=== PATIENT | male | born 1955 | race Caucasian/White ===

== ENCOUNTER → 2020-11-07 07:43 | Outpatient (CLI) | payer MEDICARE, SELFPAY ==
--- NOTE | ~2020-11-07 | MR_ITS ---
EXAMINATION: MR foot RT wo con DATE: 11/07/2020 09:06 INDICATION: Chronic worsening right forefoot pain with paresthesias. TECHNIQUE: Magnetic resonance imaging (MRI) of the right fore/mid foot was performed without intraven ous contrast. Sequences included sagittal T1-weighted FSE, sagittal fluid sensitive FSE STIR, coronal PD-weighted FS FSE, coronal T1-weighted FSE, axial PD-weighted FS FSE, and axial PD-weighted FSE. COMPARISON: None FINDINGS: Small to moderate amount of motion artifact on multiple sequences despite repetition of a few sequenc es which mildly limits evaluation. Bone alignment is normal. 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 There is secondary degenerative subarticular cystic change along the proxim al articular surface of the medial cuneiform. Additional mild likely degenerative subarticular edema at the head of the first metatarsal. Otherwise normal marrow signal with no fracture, stress reaction , osteonecrosis or pathologic marrow replacing process. No joint effusions. Lisfranc ligament complex and the collateral ligament complex at the metatarsophalangeal and interphalangeal joints appear nor mal. The flexor and extensor tendons of the foot appear normal. There is mild to moderate fatty atrop hy along with increased fluid signal throughout the intrinsic musculature of the foot suggesting acut e on chronic innervation changes such as in the setting of diabetic neuropathy. IMPRESSION: 1. No acute osseous abnormality. 2. Likely mild to moderate polyarticular osteoarthritis in the fore and midfoot, severity of which wo uld be better appreciated with plain radiographs due to the small to moderate amount of motion on the current study. 3. Mild to moderate fatty atrophy and increased fluid signal of the intrinsic musculature of the foot suggestive of diabetic neuropathy. Reviewed, dictated and finalized at location A. IMPRESSION: 1. No acute osseous abnormality. 2. Likely mild to moderate polyarticular osteoarthritis in the fore and midfoot , severity of which would be better appreciated with plain radiographs due to t he small to moderate amount of motion on the current study. 3. Mild to moderate fatty atrophy and increased fluid signal of the intrinsic m usculature of the foot suggestive of diabetic neuropathy.
== END ==
PROVIDERS: Visit Provider Podiatrist Foot & Ankle Surgery
DX: M79.671 Pain in right foot (principal); R20.0 Anesthesia of skin; D36.10 Benign neoplasm of peripheral nerves and autonomic nervous system, unspecified; M19.071 Primary osteoarthritis, right ankle and foot; M62.571 Muscle wasting and atrophy, not elsewhere classified, right ankle and foot
CPT/HCPCS: 73718

== ENCOUNTER → 2020-11-25 08:34 | Outpatient (CLI) | payer MEDICARE, SELFPAY ==
--- NOTE | ~2020-11-25 | CT_ITS ---
EXAMINATION: CT BRAIN W/O DATE: 11/25/2020 08:56 INDICATION: Dizziness and giddiness TECHNIQUE: Computed tomography (CT) of the head was performed without intravenous contrast. The dose- length product was 599.57 mGy-cm. The mA was adjusted according to patient size. Iterative reconstruc tion technique was employed. COMPARISON: No prior studies for comparison. FINDINGS: Normal brain parenchymal volume for age. Normal madrid-white differentiation. No acute intrac ranial hemorrhage, infarction, mass or mass effect. There are scattered mild periventricular and subc ortical white matter changes, most likely related to small vessel ischemic disease (microangiopathy). No ventriculomegaly or midline shift. Midline sagittal images demonstrate a normal corpus callosum, c raniovertebral junction and sella turcica. Basilar cisterns are patent. Paranasal sinuses and mastoids are pneumatized. No depressed skull fractures. IMPRESSION: 1. No acute intracranial abnormality. Reviewed, dictated and finalized at location A.
== END ==
PROVIDERS: PCP Pediatrics; Visit Provider Nurse Practitioner Family
DX: R42 Dizziness and giddiness (principal); H53.9 Unspecified visual disturbance; R51.9 Headache, unspecified
CPT/HCPCS: 70450

== ENCOUNTER 2021-01-08 09:33 | Outpatient (CLI) | payer MEDICARE, SELFPAY ==
--- NOTE | 2021-01-08 09:45 | ECG_ITS ---
Measurements Intervals [place] Rate: 84 P: 48 ID: [id number] QRS: 26 QRSD: 141 T: 16 QT: 373 QTc: 441 Interpretive Statements SINUS RHYTHM RIGHT BUNDLE BRANCH BLOCK BASELINE ARTIFACT- I, III, AVR, AVL, AVF, V2-V6 ABNORMAL ECG Electronically Signed On 01-08-2021 9:53:16 CDT by Anuj Green D.O.
[2021-01-08 10:07] LABS: Anion Gap 10 mmol/L (8-16); Blood Urea Nitrogen 14 mg/dL (9-20); Calcium 9.9 mg/dL (8.4-10.2); Carbon Dioxide 27 mmol/L (22-30); Chloride 103 mmol/L (98-107); Estimated Glomerular Filt Rate > 60; Glucose 161 mg/dL (65-110); Potassium 4.5 mmol/L (3.4-5.0); Sodium 140 mmol/L (137-145)
== END 2021-01-08 09:34 | disposition home or self-care (01) ==
PROVIDERS: Anesthesiology; PCP Pediatrics; Visit Provider Podiatrist Foot & Ankle Surgery
DX: E11.9 Type 2 diabetes mellitus without complications (principal); I10 Essential (primary) hypertension; Z01.818 Encounter for other preprocedural examination; I45.10 Unspecified right bundle-branch block
CPT/HCPCS: 36415; 80048; 93005

== ENCOUNTER 2021-01-09 02:46 | Day surgery (SDC) | payer MEDICARE, SELFPAY ==
[2021-01-07 13:46] VITALS: BMI 34.4
--- NOTE | 2021-01-07 13:46 | PC.NURSE ---
Report to the Outpatient Waiting Room, entrance under the green pavilion located off [facility], at time _0600 on date _01/09/21 . OR Time: . - You and your visitor will be asked a series of questions to screen for COVID 19 for your protection. - A mask is required within the hospital. - Only one visitor is allowed at this time. Patient visitors will be guided where to wait when not with patient. Preoperative COVID Testing Requirements: No COVID Test needed if: (proof is required; if not received patient will have Rapid Test prior to entry) - Patient has received COVID Vaccine at least 14 days prior to procedure date or - Patient has positive COVID test result within last 90 days of surgery date. COVID Test needed if above criteria is not met If not COVID vaccinated a COVID test must be conducted within 72 hours of surgery and patient is asked to isolate self from time of testing until procedure. You will go to the [employer] [facility] for your COVID testing. The [employer] [facility] site is located at the corner of [address] from [facility]. You will only be called if COVID results are positive and your surgeon may reschedule your elective surgery date. Patients may have clear liquids (water, carbonated beverages, clear teas, apple juice) until 3 hours prior to surgery with a maximum of 20 ounces. - No food from midnight until time of surgery - Infants may have breast milk until 4 hours before surgery, formula 6 hours prior to surgery. - Children will be allowed to drink immediately following surgery. If applicable, please bring a bottle or sippy cup to assist with drinking. Juice, water, soda, and popsicles are readily available. For infants on formula, please bring formula the day of surgery. Pacifiers are allowed. Take the following medications with a SIP of water the morning of surgery: METOPROLOL,AMLODIPINE,INHALERS,DULOXETINE,GABAPENTIN Medications to discontinue per physician _ASPIRIN-STATES HOLD 7 DAYS PRE OP PER DR CASTORENA. ALL VITAMINS AND SUPPLEMENTS OF NOW Date to take last dose Please no make-up, nail slovenian, hairspray, perfume, deodorant, or body powder the day of surgery. No jewelry (including any body piercings) or valuables the day of surgery, leave them at home. Please take a shower or bath the night before, or the morning of, surgery with an antibacterial soap. Wear comfortable, loose fitting clothing. Children are encouraged to wear pajamas. - Jewelry must be removed prior to entering the operating room. Rings and piercings that are not removed may be cut off. - The hospital will not accept responsibility for valuables. - Please leave all valuables, including medications, at home the day of surgery. If you are going home after surgery, a licensed public transit trolley driver must drive you home. - NO public transportation without another adult. - We recommend that an adult stay with you for 24 hours following discharge. - We also recommend that you do not drive, make important decision, drink alcoholic beverages, or take any drugs that were not prescribed by your health care provider for at least 24 hours after your discharge time. For Pediatric surgeries, we recommend two adults accompany the child home (only one inside the building at this time). Follow any additional instructions given to you from your surgeon. Telephone instructions given to _SPOUSE DEBBIE and asked if any additional questions and then verbalized understanding. Patient advised to call surgeon office or pre surgery nurse liaison [phone] if any additional questions.
--- NOTE | 2021-01-08 15:09 | WPDANESEPPF ---
Anes - Initial Pre Proc Eval Procedure: Operation Date: 01/09/21 07:30 Proposed Procedures p Excision of Second Intermetatarsal Space Neuroma Right Foot - Yeison Walker JR, MD Date/Time: 01/08/21 15:09 Surgeon: Yeison Walker JR, MD Pre Op Diagnosis: painful neuroma of the right foot Patient Data Age: 65 Gender: M Height: 1.78 m Weight: 108.9 kg Allergies Allergy/AdvReac Type Severity Reaction Status Date / Time No Known Allergies Allergy Verified 01/09/21 06:16 Home Medications Medication Instructions Recorded Confirmed Type amlodipine 5 mg tablet 5 mg PO DAILY 03/21/19 01/07/21 History antiarthritic combination no.2 900 900 mg PO DAILY 03/21/19 01/07/21 History mg tablet aspirin 81 mg tablet,delayed 81 mg PO DAILY 03/21/19 01/07/21 History release cholecalciferol (vitamin D3) 25 25 mcg PO DAILY 03/21/19 01/07/21 History mcg (1,000 unit) tablet duloxetine 60 mg capsule,delayed 60 mg PO DAILY 03/21/19 01/07/21 History release sprinkle glimepiride 2 mg tablet 2 mg PO QAM 03/21/19 01/07/21 History losartan 50 mg tablet 50 mg PO DAILY 03/21/19 01/07/21 History mecobalamin (vitamin B12) 1,000 1,000 mcg SUBLINGUAL DAILY 03/21/19 01/07/21 History mcg disintegrating tablet,sublingual metformin 1,000 mg tablet 1,000 mg PO BID 03/21/19 01/07/21 History metoprolol succinate 50 mg capsule 50 mg PO DAILY 03/21/19 01/07/21 History sprinkle, ext. release 24 hr nabumetone 500 mg tablet 500 mg PO BID 03/21/19 01/07/21 History omega-3 fatty acids 1,000 mg 1,000 mg PO BID 03/21/19 01/07/21 History capsule tamsulosin 0.4 mg capsule 0.4 mg PO DAILY 03/21/19 01/07/21 History levalbuterol tartrate 45 2 inhalation INHALATION Q6H PRN 11/16/19 01/07/21 Rx mcg/actuation aerosol inhaler #15 gm semaglutide 0.5 mg SUB-Q WEEKLY ml 11/16/19 01/07/21 History albuterol sulfate 2.5 mg INHALATION QID PRN 90 Days 05/15/20 01/07/21 Rx #1080 ml montelukast 10 mg tablet 10 mg PO DAILY 90 Days #90 tablet 05/15/20 01/07/21 Rx pantoprazole 40 mg tablet,delayed See Rx Instructions .ROUTE 05/16/20 01/07/21 Rx release .COMPLEX #180 tablet atorvastatin 40 mg PO BID 01/07/21 01/07/21 History kdzzcvmebrz-lmjyuntbc-govlkztq 1 inh INHALATION DAILY 01/07/21 01/07/21 History [Trelegy Ellipta] gabapentin 300 mg PO TID 01/07/21 01/07/21 History Patient hx anesthesia problems: none Family hx anesthesia problems: none Results Review: All pre-operative results and documents have been reviewed as part of the pre-operative evaluation. [facility] Past Medical History Medical History (Updated 01/08/21 @ 15:11 by Mitesh Delcid MD) Arthritis Chronic GERD COPD (chronic obstructive pulmonary disease) Depression Diabetes says around 7.2 a month ago. 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
[2021-01-09] VITALS (7 sets, daily range): BP systolic 114–167; BP diastolic 63–95; PULSE 78–86; RESP 11–18; TEMP 36.2–36.8; O2SAT 94–100; BMI 36.0
[2021-01-09] MEDS: LACTATED RINGERS 1,000 ML 30 ML IV CONT (06:40)
[2021-01-09 06:51] LABS: Glucose Point of Care 140 mg/dl (65-105)
--- NOTE | 2021-01-09 07:18 | WPDHPUPDATE1 ---
History and Physical Update Update Date/Time: 01/09/21 07:18 History and Physical has been reviewed, including an updated exam of the patient. There are NO changes in the patient's condition. Risks, benefits, and alternatives have been discussed and questions answered. Patient agrees to proceed with procedure.
[2021-01-09] MEDS: ceFAZolin 2 GM/D5W 50 ML 2 GM/50 ML BAG IVPB (07:25)
[2021-01-09] MEDS: LIDOCAINE HCL 2% LOCAL INJ 20 ML VIAL 10 ML INFILTRATE (07:48)
--- NOTE | 2021-01-09 08:20 | W.PM.PROC2 ---
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 A pneumatic ankle tourniquet was placed about the patient's right ankle. Following general anesthesia I performed a proximal right ankle ring block. Next,the foot was then scrubbed, prepped, and draped in the usual aseptic manner. An Esmarch bandage was then used to examine the patient's left foot and pneumatic ankle tourniquet was then inflated. Surgery began in the following manner. An incision was made along the dorsal aspect of the 2nd intermetatarsal space neuroma of the right foot. Dissection was continued deep to the 2nd intermetatarsal space. All bleeders were cauterized as necessary. The deep transverse intermetatarsal ligament was severed. Next, dissection was continued deep to the plantar nerve which was hypertrophied and amorphous. It was dissected proximal to the central metatarsal shaft area and transected, next the distal branches were dissected and transected to the affected second and third digits. The neural fibrous tissue was sent for gross and histopathology. The deep subcutaneous tissue was reapproximated with 4-0 Vicryl and the skin was reapproximated with 4-0 Monocryl. Upon completion of the procedure, the incision was dressed with Steri-Strips, Adaptic, 4 x 4's, Kerlix, and Coban. The pneumatic ankle tourniquet was then deflated and a prompt hyperemic response noted to all digits of the right foot. A surgical shoe was than applied. The patient did very well with the procedure and the anesthesia. The patient was transferred to the recovery room with vital signs stable and vascular status intact to all toes of the affected foot. Following a period of postoperative monitoring, the patient will be discharged home on the following written and oral postoperative instructions: 1. Keep the dressing clean, dry, and intact. Use a cast protector bag with showers. 2. The patient to be protected weight bearing witha surgical shoe. 3. The patient should ice and elevate the right foot when at rest. 4. The patient to contact Dr. Walker for all postop care and if any problems arise. 5. Prescriptions were written for Percocet 5/325 dispensed 40 to be taken 1 p.o. q.4 to 6 hours as needed for severe pain. Estimated Blood Loss 1 Drains No Packing No Pathology yes Complications No immediate complications Condition stable Disposition same day
[2021-01-09 08:36] LABS: Glucose Point of Care 158 mg/dl (65-105)
== END 2021-01-09 09:58 | disposition home or self-care (01) ==
PROVIDERS: PCP Pediatrics; Visit Provider Podiatrist Foot & Ankle Surgery
PROC: (CPT 28080; principal; 2021-01-09 07:30)
DX: G57.61 Lesion of plantar nerve, right lower limb (principal); Z79.82 Long term (current) use of aspirin; Z79.84 Long term (current) use of oral hypoglycemic drugs; Z79.51 Long term (current) use of inhaled steroids; M19.90 Unspecified osteoarthritis, unspecified site; K21.9 Gastro-esophageal reflux disease without esophagitis; E11.9 Type 2 diabetes mellitus without complications; F32.9 Major depressive disorder, single episode, unspecified; I10 Essential (primary) hypertension; E78.5 Hyperlipidemia, unspecified; Z87.891 Personal history of nicotine dependence; E66.9 Obesity, unspecified; Z68.36 Body mass index [BMI] 36.0-36.9, adult
CPT/HCPCS: 28080; 36415; 80048; 82948; 88304; 93005; J0690; J1100; J1885; J2250; J2405; J2704; J3010; J7120

== ENCOUNTER 2023-01-12 07:59 | Outpatient (CLI) | payer MEDICARE, SELFPAY ==
--- NOTE | ~2023-01-12 | CT_ITS ---
CT Scan of the Chest without Contrast: Clinical Indication: COPD Technique: Contiguous sections were acquired throughout the chest without intravenous contrast. Dose reduction technique was used on this scan by utilizing automated exposure control and iterative recon struction technique. The dose-length product (DLP) was 534.81 mGy-cm. Findings: There is no evidence of any significant mediastinal, hilar or axillary lymphadenopathy. Calcified med iastinal/hilar lymph nodes are present. There are atherosclerotic calcifications of the aorta and cor onary arteries. There is no evidence of pleural or pericardial effusion. There is severe emphysema, particularly the upper lobes. No pulmonary nodules or infiltrates are note d. Images through the upper abdomen reveal no abnormalities. Impression: Severe emphysema, particularly in the upper lobes. Reviewed, dictated and finalized at location . RIALS ANALYST Impression: Severe emphysema, particularly in the upper lobes.
--- NOTE | 2023-01-12 11:23 | WPDSIXMINUTE ---
Six Minute Walk Procedure Procedure Performed Pulmonary Stress Test (6 min walk) Six Minute Walk Six Minute Walk: This is a 6 minute walk test. The test was performed and interpreted in accordance with the 2014 ERS/ATS task force guidelines. Findings: The patient's resting room air oxygen saturation measured by pulse oximetry was 96% and heart rate was 80 bpm. Patient ambulated for 305 meters and oxygen saturation remained 92 to 98%. Heart rate at the end of the study was 92 bpm. The patient did not qualify for supplemental oxygen at rest or with ambulation. There are no prior studies for comparison.
--- NOTE | 2023-01-12 11:25 | WPDPFTINT ---
PFT Procedure Performed PFT Procedure Performed Spirometry with Pre/Post Bronchodilator Plethysmography (Lung Vol) Diffusing Cap (DLCO) Flow Vol Loop PFT Interpretation This is a pulmonary function test with pre and post-bronchodilator spirometry, plethysmography and diffusing capacity. The test was performed and results interpreted in accordance with the 2019 and 2005 ATS/ERS Task Force guidelines respectively using the Global Lung Function Initiative-2012 reference equations. Patient demonstrated good effort and cooperation. Reproducibility criteria were met. The quality of the pre bronchodilator spirometry maneuver was Grade B and post bronchodilator spirometry maneuver was Grade B. Findings: Spirometry: There is decreased maximal expiratory airflow at all lung volumes. The contour the inspiratory flow tracing is normal. The pre bronchodilator FVC is 3.24 L, 78% predicted. The pre bronchodilator FEV1 is 1.75 L, 55% predicted. The pre bronchodilator FEV1: FVC ratio is 54%. The post bronchodilator FVC is 3.96 L, representing a 22% increase. The post bronchodilator FEV1 is 2.11 L, representing a 20% increase. The post bronchodilator FEV1: FVC ratio is 53%. Plethysmography: The total lung capacity is 7.14 L, 105% predicted. The functional residual capacity is 3.84 L, 107% predicted. The residual volume is 3.47 L, 148% predicted. Diffusing capacity: The diffusing capacity unadjusted for hemoglobin and carboxyhemoglobin is 16.5, 63% predicted. The diffusing capacity adjusted for alveolar volume is 2.69, 66% predicted. In comparison to previous pulmonary function testing on 04/29/2017 the post bronchodilator FVC is unchanged from 3.73 L to 3.96 L. The post bronchodilator FEV1 is unchanged from 2.24 L to 2.11 L. The total lung capacity is unchanged from 8.22 L to 7.14 L. The functional residual capacity is decreased from 5.39 L to 3.84 L. The residual volume is decreased from 4.22 L to 3.47 L. The diffusing capacity unadjusted for hemoglobin and carboxyhemoglobin is unchanged from 18.0 to 16.5. The diffusing capacity adjusted for alveolar volume is decreased from 3.49 to 2.69. Impression: There is a moderately severe obstructive abnormality with significant improvement after inhaling a single dose of albuterol. The increase in residual volume is consistent with air trapping from an obstructive abnormality. The diffusing capacity unadjusted for hemoglobin and carboxyhemoglobin is mildly decreased and remains mildly decreased when adjusted for alveolar volume. In comparison to previous pulmonary function testing on 04/29/2017 there has been a greater than anticipated time dependent decrease in the functional residual capacity, residual volume and diffusing capacity adjusted for alveolar volume with no significant change in the FVC, FEV1, total lung capacity or diffusing capacity unadjusted for hemoglobin and carboxyhemoglobin. Clinical correlation is recommended.
== END 2023-01-12 08:00 | disposition home or self-care (01) ==
PROVIDERS: PCP Pediatrics; Visit Provider Physician Assistant
DX: J44.9 Chronic obstructive pulmonary disease, unspecified (principal); R06.09 Other forms of dyspnea; J43.9 Emphysema, unspecified; R94.2 Abnormal results of pulmonary function studies
CPT/HCPCS: 71250; 94060; 94618; 94726; 94729

== ENCOUNTER 2023-03-06 14:54 | Emergency (ER) | payer MEDICARE, SELFPAY ==
--- NOTE | ~2023-03-06 | XR_ITS ---
EXAM: XR ankle RT min 3V DATE: 03/06/2023 16:09 HISTORY: FALL 3 WEEKS AGO . COMPARISON: None available. FINDINGS: Normal mineralization. Small nondisplaced lateral malleolus avulsion fractures, with both acute and chronic appearance. Likely chronic medial malleolar avulsion fragments, without overlying s oft tissue swelling. No lytic or blastic lesion. Moderate degenerative change at the tibiotalar joint . Moderate Achilles and plantar enthesopathy. No erosion or periosteal change. Swelling over the late ral malleolus. IMPRESSION: Likely acute, small, nondisplaced lateral malleolar avulsion fracture, correlate with rhett n/tenderness. Reviewed, dictated and finalized at location K. ONAL ACCOUNT MANAGER IMPRESSION: Likely acute, small, nondisplaced lateral malleolar avulsion fractu re, correlate with pain/tenderness.
[2023-03-06 15:17] VITALS: BP 153/91; PULSE 85; RESP 20; TEMP 36.5; O2SAT 97
--- NOTE | 2023-03-06 15:27 | ED.DENTAL ---
HPI - Dental/Oral General Chief complaint: Dental/Oral <Edwige Melgar NP - Last Filed: 03/06/23 17:18> Stated complaint: TOOTHACHE / R ANKLE INJURY <Edwige Melgar NP - Last Filed: 03/06/23 17:18> Time Seen by Provider: 03/06/23 15:27 <Edwige Melgar NP - Last Filed: 03/06/23 17:18> Source: patient <Edwige Melgar NP - Last Filed: 03/06/23 17:18> Mode of arrival: ambulatory <Edwige Melgar NP - Last Filed: 03/06/23 17:18> Limitations: no limitations <Edwige Melgar NP - Last Filed: 03/06/23 17:18> History of Present Illness HPI Narrative: 67-year-old male presents with complaint of right lower dental pain for 1 month. Patient reports that he had a crown placed to tooth that is hurting him a few months ago. Pain worse with eating. Febrile. No significant swelling noted. Patient also reports right ankle pain and swelling for 3 weeks. Reports he stepped into a hole, right ankle twisted and slid down into a hole. Pain worse when ambulatory. Called primary care physician for appointment and not able to see him until March 31. Patient would like x-ray to rule out fracture. All systems reviewed and negative except as noted above. <Edwige Melgar NP - Last Filed: 03/06/23 17:18> Related Data Home medications: Home Medications Medication Instructions Recorded Confirmed amlodipine 5 mg tablet 5 mg PO DAILY 03/21/19 03/06/23 antiarthritic combination no.2 900 900 mg PO DAILY 03/21/19 12/20/22 mg tablet (glucosamine-chondroitin) aspirin 81 mg tablet,delayed 81 mg PO DAILY 03/21/19 03/06/23 release (Adult Low Dose Aspirin) cholecalciferol (vitamin D3) 25 25 mcg PO DAILY 03/21/19 03/06/23 mcg (1,000 unit) tablet duloxetine 60 mg capsule,delayed 60 mg PO DAILY 03/21/19 03/06/23 release sprinkle glimepiride 2 mg tablet 2 mg PO QAM 03/21/19 03/06/23 losartan 50 mg tablet 50 mg PO DAILY 03/21/19 03/06/23 mecobalamin (vitamin B12) 1,000 1,000 mcg sublingual DAILY 03/21/19 03/06/23 mcg disintegrating tablet,sublingual metformin 1,000 mg tablet 1,000 mg PO BID 03/21/19 03/06/23 metoprolol succinate 50 mg capsule 50 mg PO DAILY 03/21/19 03/06/23 sprinkle, ext. release 24 hr nabumetone 500 mg tablet 500 mg PO BID 03/21/19 03/06/23 omega-3 fatty acids 1,000 mg 1,000 mg PO BID 03/21/19 03/06/23 capsule (Fish Oil Concentrate) tamsulosin 0.4 mg capsule 0.4 mg PO DAILY 03/21/19 03/06/23 atorvastatin 80 mg tablet 40 mg PO BID 01/07/21 03/06/23 gabapentin 300 mg capsule 300 mg PO TID 01/07/21 03/06/23 semaglutide 0.25 mg or 0.5 mg (2 1 mg subcut WEEKLY 06/11/22 12/20/22 mg/1.5 mL) subcutaneous pen injector (Ozempic) <Edwige Melgar NP - Last Filed: 03/06/23 17:18> Allergies/adverse reactions: Allergies Allergy/AdvReac Type Severity Reaction Status Date / Time No Known Allergies Allergy Verified 03/06/23 15:14 <Edwige Melgar NP - Last Filed: 03/06/23 17:18> Review of Systems Review of Systems: CONSTITUTIONAL: Denies fever, chills, or sweats. EYES: Denies visual changes, redness, or discharge. ENT: Denies rhinorrhea, congestion, sore throat, or otalgia. Reports right lower dental pain. CARDIOVASCULAR: Denies chest pain, palpitations, or edema. RESPIRATORY: Denies cough or dyspnea. GASTROINTESTINAL: Denies abdominal pain, nausea, vomiting, or diarrhea. GENITOURINARY: Denies dysuria or hematuria. SKIN: Denies rash or itching. MUSCULOSKELETAL: Denies back pain or myalgia. Reports right ankle pain and swelling. NEUROLOGIC: Denies headache, numbness, or weakness. PSYCHIATRIC: Denies anxiety or depression. All other systems reviewed are negative, except as documented in HPI. <Edwige Melgar, CHIEF INFORMATION SECURITY OFFICER - Last Filed: 03/06/23 17:18> [facility] Past Medical History Medical History: Medical History (Updated 03/06/23 @ 16:29 by Jonathan Plunkett APRN) Arthritis Chronic GERD COPD (chronic obstruc
== END 2023-03-06 16:50 | disposition home or self-care (01) ==
PROVIDERS: Emergency Provider Nurse Practitioner Family; PCP Pediatrics
DX: S82.64XA Nondisplaced fracture of lateral malleolus of right fibula, initial encounter for closed fracture (principal); K08.89 Other specified disorders of teeth and supporting structures; T14.90XA Injury, unspecified, initial encounter; E11.9 Type 2 diabetes mellitus without complications; E78.5 Hyperlipidemia, unspecified; I10 Essential (primary) hypertension; E66.9 Obesity, unspecified; Z68.38 Body mass index [BMI] 38.0-38.9, adult; Z87.891 Personal history of nicotine dependence
CPT/HCPCS: 29515; 73610; 99213; G0463

== ENCOUNTER → 2023-04-13 09:41 | Outpatient (CLI) | payer MEDICARE, SELFPAY ==
--- NOTE | ~2023-04-13 | MR_ITS ---
MRI of the right ankle Clinical history: Pain Technique: Coronal proton-density and proton-density fat-sat images, axial proton-density and proton- density fat-sat images, and sagittal proton-density and proton-density fat-sat images were acquired. Findings: Syndesmotic ligaments are intact. Anterior and posterior talofibular ligaments, and calcane ofibular ligament are intact. Medial flexor tendons, peroneal tendons, anterior extensor tendons, and Achilles tendon are intact. T here is mild tendinosis of the peroneal tendons with mild tenosynovitis at the level of the lateral m alleolus. There is an acute, transverse, minimally displaced fracture of the tip of the lateral malleolus. Ther e is probable focal subchondral lesion at the lateral corner of the talar dome with chondral malacia and focal subchondral marrow edema. Small tibiotalar joint effusion present. There is cystic/enthesop athic change in the talus at the deltoid ligament insertion. . Plantar fascia intact. There are small plantar calcaneal spur. Normal signal preserved in the sinus T arsi. Impression: Acute, transverse, minimally displaced fracture of the very tip of the lateral malleolus. Peroneal tendinosis and associated tenosynovitis. Focal osteochondral lesion at the lateral corner of the talar dome. Reviewed, dictated and finalized at location . [employer] Impression: Acute, transverse, minimally displaced fracture of the very tip of the lateral malleolus. Peroneal tendinosis and associated tenosynovitis. Focal osteochondral lesion at the lateral corner of the talar dome.
== END ==
PROVIDERS: PCP Podiatrist Foot & Ankle Surgery; Visit Provider Podiatrist Foot & Ankle Surgery
DX: S82.61XA Displaced fracture of lateral malleolus of right fibula, initial encounter for closed fracture (principal); M65.871 Other synovitis and tenosynovitis, right ankle and foot; M93.871 Other specified osteochondropathies, right ankle and foot; X58.XXXA Exposure to other specified factors, initial encounter
CPT/HCPCS: 73721

== ENCOUNTER 2024-09-10 08:05 | Outpatient (CLI) | payer MEDICARE, SELFPAY ==
--- NOTE | ~2024-09-10 | CT_ITS ---
CT Scan of the Chest without Contrast: Clinical Indication: COPD Technique: Contiguous sections were acquired throughout the chest without intravenous contrast. Dose reduction technique was used on this scan by utilizing automated exposure control and iterative recon struction technique. The dose-length product (DLP) was 639.90 mGy-cm. COMPARISON: 01/24/2023 Findings: There is no evidence of any significant mediastinal, hilar or axillary lymphadenopathy. Coronary jeremy ry calcifications are present. Small calcified right hilar and subcarinal/precarinal lymph nodes are present. There is no evidence of pleural or pericardial effusion. The lungs are clear. No pulmonary nodules or infiltrates are noted. Advanced emphysema present. Images through the upper abdomen reveal no abnormalities. Impression: Advanced emphysema, essentially stable from prior exam radiographically. Reviewed, dictated and finalized at [facility]. Impression: Advanced emphysema, essentially stable from prior exam radiographically.
--- OUTSIDE RECORDS SUMMARY | 2024-09-10 08:14 | XMS_ITS | Clinical Summary ---
Author Organization [facility] Address [address] [place] [address] Care Team Providers Care Marketing Outreach Coordinator Name Role Phone Jorge Moore MD Primary Care Provider [phone] Source Comments [facility],non-owned Affiliates and Associated Physician Practices is amultiple site organization consisting of ambulatory clinics and hospital sitesin [place], [place], [place] and [place]. This disclosure is being madepursuant to the Care Everywhere program and may not contain all information available regarding this patient. Last updated 17.[facility] Allergies No known active allergies Medications * Be aware that medications may not be up to date on this document. Alwaysverify current medications with the patient. OZEMPIC, 0.25 OR 0.5 MG/DOSE, 2 MG/1.5ML pen Inject 0.5 mg subcutaneously every 7 days 0 Active TRADJENTA 5 MG tablet Take 5 mg by mouth once daily 0 Active metFORMIN (GLUCOPHAGE) 1000 MG tablet Take 1,000 mg by mouth 2 times daily 0 Active metoprolol succinate XL 24hr (TOPROL XL) 50 MG tablet Take 50 mg by mouth 2 times daily 0 Active levalbuterol (XOPENEX) 45 MCG/ACT inhaler Inhale 2 puffs by mouth every 6 hours as needed 0 Active gabapentin (NEURONTIN) 300 MG capsule Take 300 mg by mouth 3 times daily 0 Active losartan (COZAAR) 50 MG tablet Take 50 mg by mouth 2 times daily 0 Active montelukast (SINGULAIR) 10 MG tablet Take 10 mg by mouth once daily 0 Active glimepiride (AMARYL) 2 MG tablet Take 2 mg by mouth 2 times daily 0 Active TRELEGY ELLIPTA 100-62.5-25 MCG/INH Inhale 1 puff by mouth once daily 0 Active DULoxetine (CYMBALTA) 60 MG capsule Take 60 mg by mouth once daily 0 Active atorvastatin (LIPITOR) 80 MG tablet Take 80 mg by mouth once daily 0 Active amLODIPine (NORVASC) 5 MG tablet Take 5 mg by mouth once daily 0 Active albuterol (PROVENTIL;DEIDRA TOLIN) (2.5 MG/3ML) 0.083% nebulizer solution Inhale 3 mL by mouth every 6 hours as needed 0 Active pantoprazole EC (PROTONIX) 40 MG tablet Take 40 mg by mouth once daily 0 Active nabumetone (RELAFEN) 500 MG tablet Take 500 mg by mouth 2 times daily 0 Active tamsulosin (FLOMAX) 0.4 MG capsule Take 0.4 mg by mouth once daily 0 Active aspirin EC (ECOTRIN) 81 MG tablet Take 81 mg by mouth once daily Active multivitamin daily tablet Take 1 tablet by mouth daily with food Active Cinnamon 500 MG Take 500 mg by mouth once daily Active vitamin D, cholecalcifero l, 50 MCG (2000 UT) tablet Take 2,000 Units by mouth once daily Active Carroll, Zingiber officinalis, (CARROLL ROOT) 500 MG Take 500 mg by mouth once daily Active APPLE CIDER VINEGAR PO Take 450 mg by mouth once daily Active Arjay-3 Fatty Acids (FISH OIL) 1200 MG Take 1,200 mg by mouth 2 times daily Active Turmeric 500 MG Take 500 mg by mouth once daily Active Active Problems Problem Noted Date Diagnosed Date Controlled type 2 diabetes liset agustin with complication, without long-term current use of insulin 11/29/2019 COPD (chronic obstructive pulmonary disease) Essential hypertension Overview (11/29/2019): Cath 01/2014 - mild plaquing in RCA only, LVEDP 14 mmHg Mixed hyperlipidemia Family History Medical History Relation Name Comments Diabetes - Type 2 Father Lupus Mother Relation Name Status Comments Father Mother Social History Tobacco Use Types Packs/Day Years Used Date Smoking Tobacco: Former Cigarettes 2 27 1 03/10/1972 - 01/09/2000 Alcohol Use Standard Drinks/Week Comments Yes 0 (1 standard drink = 0.6 oz pur e alcohol) Rare Sex and Gender Information Value Date Recorded Sex Assigned at Not on file Legal Sex Male 11:35 AM CDT Gender Identity Not on file Sexual Orientation Not on file Last Filed Vital Signs Vital Sign Reading Time Taken Comments Blood Pressure 183/110 11/29/2019 11:57 AM CDT Pulse 90 11/29/2019 11:57 AM CDT Temperature - - Respiratory Rate - - Oxygen Saturation 98% 11/29/2019 11:57 AM CDT Inhaled Oxygen Concentration - - Weight 117 kg (258 lb) 11/29/2019 11:57 AM CDT Height 179.1 cm (5' 10.5) 11/29/2019 11:57 AM C DT Body Mass Index 36.5 11/29/2019 11:57 AM CDT Plan of Treatment Health Maintenance Due Date Last Done Comments COLOGUARD (AGES 45-75) - COL ON CA SCREENING 1954 COLON MONITORING 1954 COLONOSCOPY - COLON CA SCREENING 1954 CT COLONOGRAPHY - COLON CA SCREENING 1954 Colorectal Cancer Screening 1954 FIT - COLON CA SCREENING 1954 FLEX SIG - COLON CA SCREENING 1954 HEPATITIS C SCREENING 08/29/1972 DIABETES-SERUM CREATININE 1972 DTAP/TDAP/TD VACCINES (1 - Tdap) 1973 PNEUMOCOCCAL VACCINE 50+ (1 of 2 - PCV) 1973 ZOSTER VACCINE (1 of 2) 2004 Respiratory Syncytial Virus (RSV) Vaccine Pt: or over 60 yrs (1 - Risk 60-74 years 1-dose series) 2014 AAA SCREENING 09/04/2019 DIABETES-FOOT EXAM WITH MONOFILAMENT 11/29/2019 DIABETES-HGB A1C 11/29/2019 COVID-19 VACCINE (1 - 2023-2 5 season) 2023 DEPRESSION SCREENING 03/07/2024 DIABETES - URINE PROTEIN SCREENING 03/07/2024 INFLUENZA VACCINE (#1) 2024 HEPATITIS B VACCINE Aged Out No longe r eligible based on patient's age to complete this topic HIB VACCINE Aged Out No longer eligi ble based on patient's age to complete this topic HPV VACCINE Aged Out No longer eligi ble based on patient's age to complete this topic MENINGOCOCCAL (Group B) VACC INE SHARED DECISION-MAKING Aged Out No longer eligibl e based on patient's age to complete this topic MENINGOCOCCAL GROUPS A/C/Y/W VACCINE Aged Out No longer eligible b ased on patient's age to complete this topic Insurance [facility] Care Teams Marketing Outreach Coordinator Relationship Specialty Start Date End Date Jorge Moore MD [address] [place] [address] PCP - General 01/13/21
--- NOTE | 2024-09-11 07:22 | WPDSIXMINUTE ---
Six Minute Walk Procedure Procedure Performed Pulmonary Stress Test (6 min walk) Six Minute Walk Six Minute Walk: This is a 6 minute walk test. The test was performed and interpreted in accordance with the 2014 ERS/ATS task force guidelines. Of note, patient complained of chest tightness at the end of the study. Findings: The patient's resting room air oxygen saturation measured by pulse oximetry was 98%, the heart rate was 75 bpm, and the modified Reinaldo dyspnea score was 0. Patient ambulated for 396 meters and oxygen saturation remained 95 to 96%. At the end of the study the heart rate was 111 bpm and the modified Reinaldo dyspnea score was 3. The patient did not qualify for supplemental oxygen at rest or with ambulation. There are no prior studies for comparison.
--- NOTE | 2024-09-11 07:24 | P.PCNPFT_ITS ---
PFT Procedure Performed PFT Procedure Performed Spirometry with Pre/Post Bronchodilator Plethysmography (Lung Vol) Diffusing Cap (DLCO) Flow Vol Loop PFT Interpretation This is a pulmonary function test with pre and post-bronchodilator spirometry, plethysmography and diffusing capacity. The test was performed and results interpreted in accordance with the 2019 and 2005 ATS/ERS Task Force guidelines respectively using the Global Lung Function Initiative-2012 reference equations. Patient demonstrated good effort and cooperation. Reproducibility criteria were met. The quality of the pre bronchodilator spirometry maneuver was Grade A and post bronchodilator spirometry maneuver was Grade A. Findings: Spirometry: There is decreased maximal expiratory airflow at all lung volumes with concave expiratory flow tracing. The contour the inspiratory flow tracing is normal. The pre bronchodilator FVC is 2.71 L, 66% predicted. The pre bronchodilator FEV1 is 1.21 L, 39% predicted. The pre bronchodilator FEV1: FVC ratio is 45%. The post bronchodilator FVC is 3.07 L, representing a 13% increase. The post bronchodilator FEV1 is 1.54 L, representing a 28% increase. The post bronchodilator FEV1: FVC ratio is 50%. Plethysmography: The total lung capacity is 7.19 L, 106% predicted. The functio nal residual capacity is 5.06 L, 141% predicted. The residual volume is 4.48 L, 188% predicted. The residual volume: Total lung capacity ratio is 62%. Diffusing capacity: The diffusing capacity unadjusted for hemoglobin and carboxyhemoglobin is 13.3, 52% predicted. The diffusing capacity adjusted for alveolar volume is 2.96, 74% predicted. In comparison to previous pulmonary function testing on 01/12/2023, the post bronchodilator FVC has decreased from 3.96 L to 3.07 L. The post bronchodilator FEV1 is decreased from 2.11 L to 1.54 L. The total lung capacity is unchanged from 7.14 L to 7.19 L. The functional residual capacity has increased from 3.84 L to 5.06 L. The residual volume has increased from 3.47 L to 4.48 L. The residual volume: Total lung capacity ratio is increased from 49% to 62%. The diffusing capacity unadjusted for hemoglobin and carboxyhemoglobin is decreased from 16.5 to 13.3. The diffusing capacity adjusted for alveolar volume is unchanged from 2.69 to 2.96 Impression: There is a severe obstructive abnormality. There is significant improvement after inhaling a single dose of albuterol. The increase in residual volume to total lung volume ratio is consistent with hyperinflation from an obstructive abnormality. The diffusing capacity unadjusted for hemoglobin and carboxyhemoglobin is moderately decreased and normalizes when adjusted for alve olar volume. In comparison to previous pulmonary function testing on 01/12/2023, there has been a greater than anticipated time dependent decrease in the FVC, FEV1, and diffusing capacity unadjusted for hemoglobin and carboxyhemoglobin. There has been a greater than anticipated time dependent increase in the functional residual capacity, residual volume and residual volume: Total lung capacity ratio with no significant change in the total lung capacity or diffusing capacity adjusted for alveolar volume. Clinical correlation is recommended.
== END 2024-09-10 08:06 | disposition home or self-care (01) ==
PROVIDERS: PCP Pediatrics; Visit Provider Physician Assistant
DX: J44.9 Chronic obstructive pulmonary disease, unspecified (principal); R94.2 Abnormal results of pulmonary function studies
CPT/HCPCS: 71250; 94060; 94726; 94729